=== PATIENT | male | born 1980 | race Caucasian/White ===

== ENCOUNTER 2018-10-13 18:48 | Emergency (ER) | payer OTHER ==
[2018-10-13 19:07] VITALS: RESP 18; TEMP 98.2
--- NOTE | 2018-10-13 19:30 | ED ---
Lower Extremity Injury HPI - General Source: patient Mode of arrival: ambulatory Limitations: no limitations <Maicol Rodriguez - Last Filed: 10/13/18 19:30> - General Source: patient, RN notes reviewed Mode of arrival: ambulatory Limitations: no limitations <Andrews Valladares - Last Filed: 10/13/18 21:12> - General Chief Complaint: Extremity Injury, Lower Stated Complaint: lt knee/leg pain Time Seen by Provider: 10/13/18 19:24 - History of Present Illness Initial Comments: 38-year-old male presents to the emergency department for a chief complaint of left knee pain times one day. Patient states that he was walking up the stairs when he suddenly felt the pain on the medial aspect of the left knee. Patient states he has not yet tried walking on this. Patient comes from [place] for methamphetamines. Patient has not had Motrin or Tylenol. Denies any fevers or chills. Patient has no other complaints at this time including shortness of breath, chest pain, abdominal pain, nausea or vomiting, headache, or visual changes. (Andrews Valladares) - Related Data Allergies Allergy/AdvReac Type Severity Reaction Status Date / Time morphine AdvReac Unknown Verified 10/13/18 19:07 Review of Systems ROS Other: All systems not noted in ROS Statement are negative. <Maicol Rodriguez - Last Filed: 10/13/18 19:30> ROS Other: All systems not noted in ROS Statement are negative. <Andrews Valladares - Last Filed: 10/13/18 21:12> ROS Statement: Those systems with pertinent positive or pertinent negative responses have been documented in the HPI. Past Medical History Past Medical History: No Reported History History of Any Multi-Drug Resistant Organisms: None Reported Past Surgical History: Orthopedic Surgery Additional Past Surgical History / Comment(s): jaw, left leg, right elbow Past Psychological History: No Psychological Hx Reported Smoking Status: Current every day smoker Past Alcohol Use History: None Reported Past Drug Use History: Methamphetamine <Maicol Rodriguez - Last Filed: 10/13/18 19:30> General Exam Limitations: no limitations <Maicol Rodriguez - Last Filed: 10/13/18 19:30> Limitations: no limitations General appearance: alert, in no apparent distress Head exam: Present: atraumatic, normocephalic, normal inspection Eye exam: Present: normal appearance ENT exam: Present: normal exam, mucous membranes moist Neck exam: Present: normal inspection, full ROM. Absent: tenderness, meningismus, lymphadenopathy Respiratory exam: Present: normal lung sounds bilaterally. Absent: respiratory distress, wheezes, rales, rhonchi, stridor Cardiovascular Exam: Present: regular rate, normal rhythm, normal heart sounds. Absent: systolic murmur, diastolic murmur, rubs, gallop, clicks Extremities exam: Present: full ROM (Full range of motion of the left knee), tenderness (Mild tenderness to the medial aspect of the left knee, no tenderness elsewhere the left lower extremity), normal capillary refill (Capillary refill less than 2 seconds and DP pulse 2+ the left lower extremity, foot is warm.), other (Sensation intact in the left lower extremity). Absent: joint swelling (No edema or erythema noted to the left knee.), calf tenderness (Negative Homans sign, no erythema or edema.) Neurological exam: Present: alert, oriented X3, CN II-XII intact Psychiatric exam: Present: normal affect, normal mood <Andrews Valladares - Last Filed: 10/13/18 21:12> Course Vital Signs 10/13/18 19:04 Temperature 98.2 F Pulse Rate 91 Respiratory 18 Rate Blood Pressure 117/77 O2 Sat by Pulse 98 Oximetry Medical Decision Making <Andrews Valladares - Last Filed: 10/13/18 21:12> - Medical Decision Making 38-year-old male presents to the emergency department for left medial knee pain after walking up stairs today. Patient states he felt the pain in the medial aspect of his knee. Patient states he can walk on it but it is painful. Neurovascular intact. Patient is at [facility] for methamphetamine use, no IV drug abuse. X-ray shows no fracture or dislocation, no sign of knee joint effusion. On exam there is no erythema or edema. Patient does have full range of motion. Patient was wrapped with an Wenceslao wrap and given a prescription for crutches. He was given a referral to orthopedics. He will follow up with primary care in 1-2 days as well. Discussed rice therapy and return precautions. (Andrews Valladares) Disposition <Maicol Rodriguez - Last Filed: 10/13/18 19:30> Is patient prescribed a controlled substance at d/c from ED?: No Time of Disposition: 21:07 <Andrews Valladares - Last Filed: 10/13/18 21:12> Clinical Impression: Knee injury Disposition: HOME SELF-CARE Condition: Good Instructions (If sedation given, give patient instructions): Knee Sprain (ED) Additional Instructions: Please take Motrin and Tylenol for pain. Please rest ice and elevate the left knee. Follow-up with orthopedics in one to 2 days. Use crutches as needed. Return to the emergency department if you have any worsening symptoms. Referrals: Flor Otoole MD [STAFF PHYSICIAN] - 1-2 days Keon Zamora MD [Medical Doctor] - 1-2 days
[2018-10-13] MEDS ORDERED: IBUPROFEN 600 MG TAB PO STA (20:05)
--- NOTE | 2018-10-13 20:42 | XR ---
EXAMINATION TYPE: XR knee complete LT DATE OF EXAM: 10/13/2018 COMPARISON: NONE HISTORY: Left knee pain TECHNIQUE: 3 views FINDINGS: I see no fracture nor dislocation. Joint spaces are normal. There is no sign of a knee join t effusion. IMPRESSION: Negative left knee exam.
[2018-10-13 22:00] VITALS: BP 132/83; PULSE 92
== END 2018-10-13 22:25 | disposition home or self-care (01) ==
LOC: EDBD → EC 18:48
DX: S89.92XA Unspecified injury of left lower leg, initial encounter (principal); F17.200 Nicotine dependence, unspecified, uncomplicated; Z88.5 Allergy status to narcotic agent; X50.9XXA Other and unspecified overexertion or strenuous movements or postures, initial encounter; Y93.01 Activity, walking, marching and hiking
CPT/HCPCS: 99283

== ENCOUNTER 2021-12-11 06:21 | Observation (INO) | payer BC, OTHER ==
[2021-12-11 06:30] VITALS: TEMP 97.9
[2021-12-11] MEDS ORDERED: ASPIRIN 81 MG PO STA (06:54)
--- NOTE | 2021-12-11 07:04 | ED ---
General Adult HPI - General Chief complaint: Chest Pain Stated complaint: SOB, chest pains Time Seen by Provider: 12/11/21 06:36 Source: patient Mode of arrival: ambulatory - History of Present Illness Initial comments: 41-year-old male presents to the emergency room for a chief complaint of chest pain. Patient states he has had chest pain on and off for the past few months. However about 5 days ago the pain started to worsen some and then this morning about an hour ago he felt he needed to come to the emergency room. He describes it as a squeezing in the left side of his chest currently rating the pain a 6 out of 10. Denies any radiating pain to the shoulder neck or jaw. Denies any radiating pain to the his back. He does feel some worsening pain with inspiration. Patient does not take any daily medications. No history of high cholesterol or high blood pressure although did gain significant amount of weight over the past 6 months. Patient does smoke currently.Patient has no other complaints at this time including abdominal pain, nausea or vomiting, headache, or visual changes. - Related Data Allergies Allergy/AdvReac Type Severity Reaction Status Date / Time morphine AdvReac Unknown Verified 12/11/21 06:29 Review of Systems ROS Statement: Those systems with pertinent positive or pertinent negative responses have been documented in the HPI. ROS Other: All systems not noted in ROS Statement are negative. Past Medical History Past Medical History: No Reported History History of Any Multi-Drug Resistant Organisms: None Reported Past Surgical History: Orthopedic Surgery Additional Past Surgical History / Comment(s): jaw, left leg, right elbow Past Psychological History: No Psychological Hx Reported Smoking Status: Current every day smoker Past Alcohol Use History: None Reported Past Drug Use History: Methamphetamine General Exam General appearance: alert, in no apparent distress Head exam: Present: atraumatic Eye exam: Present: normal appearance, PERRL, EOMI. Absent: scleral icterus, conjunctival injection ENT exam: Present: normal exam, mucous membranes moist Neck exam: Present: normal inspection, full ROM. Absent: tenderness Respiratory exam: Present: normal lung sounds bilaterally. Absent: respiratory distress, wheezes Cardiovascular Exam: Present: regular rate, normal rhythm, normal heart sounds GI/Abdominal exam: Present: soft, normal bowel sounds. Absent: distended, tenderness Course Vital Signs 12/11/21 12/11/21 12/11/21 06:26 06:54 07:46 Temperature 97.9 F Pulse Rate 66 58 L 68 Respiratory 16 18 16 Rate Blood Pressure 127/95 126/79 123/97 O2 Sat by Pulse 97 98 97 Oximetry EKG Findings - EKG Comments: EKG Findings:: Sinus bradycardia, ventricular rate 59, KS interval 184, QTc 388 Medical Decision Making - Medical Decision Making Vitals are stable. HPI and physical exam as documented. CBC CMP unremarkable. Troponin is negative. D-dimer is normal. Chest x-ray shows no acute process. Given patient has not seen a doctor and so does not know his medical history, is obese, and is a smoker he will be admitted for chest pain rule out. - Lab Data Result diagrams: 12/11/21 07:04 12/11/21 07:04 Lab Results 12/11/21 12/11/21 12/11/21 Range/Units 07:04 07:04 07:04 WBC 5.3 (3.8-10.6) k/uL RBC 4.86 (4.30-5.90) m/uL Hgb 14.9 (13.0-17.5) gm/dL Hct 44.7 (39.0-53.0) % MCV 92.0 (80.0-100.0) fL MCH 30.6 (25.0-35.0) pg MCHC 33.3 (31.0-37.0) g/dL RDW 12.3 (11.5-15.5) % Plt Count 281 (150-450) k/uL MPV 8.2 Neutrophils % 47 % Lymphocytes % 39 % Monocytes % 8 % Eosinophils % 3 % Basophils % 1 % Neutrophils # 2.5 (1.3-7.7) k/uL Lymphocytes # 2.0 (1.0-4.8) k/uL Monocytes # 0.4 (0-1.0) k/uL Eosinophils # 0.2 (0-0.7) k/uL Basophils # 0.1 (0-0.2) k/uL PT 10.4 (9.0-12.0) sec INR 0.9 (<1.2) APTT 25.0 (22.0-30.0) sec D-Dimer 0.30 (<0.60) mg/L FEU Sodium 140 (137-145) mmol/L Potassium 4.1 (3.5-5.1) mmol/L Chloride 108 H (98-107) mmol/L Carbon Dioxide 23 (22-30) mmol/L Anion Gap 9 mmol/L BUN 10 (9-20) mg/dL Creatinine 0.91 (0.66-1.25) mg/dL Est GFR (CKD-EPI)AfAm >90 (>60 ml/min/1.73 sqM) Est GFR (CKD-EPI)NonAf >90 (>60 ml/min/1.73 sqM) Glucose 98 (74-99) mg/dL Calcium 8.6 (8.4-10.2) mg/dL Magnesium 1.9 (1.6-2.3) mg/dL Total Bilirubin 0.4 (0.2-1.3) mg/dL AST 21 (17-59) U/L ALT 19 (4-49) U/L Alkaline Phosphatase 50 (38-126) U/L Troponin I (0.000-0.034) ng/mL NT-Pro-B Natriuret Pep pg/mL Total Protein 6.3 (6.3-8.2) g/dL Albumin 3.9 (3.5-5.0) g/dL Lipase 112 (23-300) U/L 12/11/21 12/11/21 Range/Units 07:04 07:04 WBC (3.8-10.6) k/uL RBC (4.30-5.90) m/uL Hgb (13.0-17.5) gm/dL Hct (39.0-53.0) % MCV (80.0-100.0) fL MCH (25.0-35.0) pg MCHC (31.0-37.0) g/dL RDW (11.5-15.5) % Plt Count (150-450) k/uL MPV Neutrophils % % Lymphocytes % % Monocytes % % Eosinophils % % Basophils % % Neutrophils # (1.3-7.7) k/uL Lymphocytes # (1.0-4.8) k/uL Monocytes # (0-1.0) k/uL Eosinophils # (0-0.7) k/uL Basophils # (0-0.2) k/uL PT (9.0-12.0) sec INR (<1.2) APTT (22.0-30.0) sec D-Dimer (<0.60) mg/L FEU Sodium (137-145) mmol/L Potassium (3.5-5.1) mmol/L Chloride (98-107) mmol/L Carbon Dioxide (22-30) mmol/L Anion Gap mmol/L BUN (9-20) mg/dL Creatinine (0.66-1.25) mg/dL Est GFR (CKD-EPI)AfAm (>60 ml/min/1.73 sqM) Est GFR (CKD-EPI)NonAf (>60 ml/min/1.73 sqM) Glucose (74-99) mg/dL Calcium (8.4-10.2) mg/dL Magnesium (1.6-2.3) mg/dL Total Bilirubin (0.2-1.3) mg/dL AST (17-59) U/L ALT (4-49) U/L Alkaline Phosphatase (38-126) U/L Troponin I <0.012 (0.000-0.034) ng/mL NT-Pro-B Natriuret Pep 57 pg/mL Total Protein (6.3-8.2) g/dL Albumin (3.5-5.0) g/dL Lipase (23-300) U/L Disposition Clinical Impression: Chest pain Disposition: ADMITTED IP TO THIS [facility] Referrals: None,Stated [Primary Care Provider] - 1-2 days Time of Disposition: 08:42
[2021-12-11 07:26] LABS: Basophils # (A) 0.1 k/uL (0-0.2); Basophils % (A) 1 %; Eosinophils # (A) 0.2 k/uL (0-0.7); Eosinophils % (A) 3 %; HCT 44.7 % (39.0-53.0); HGB 14.9 gm/dL (13.0-17.5); Lymphocytes % (A) 39 %; MCH 30.6 pg (25.0-35.0); MCHC 33.3 g/dL (31.0-37.0); Mean Platelet Volume 8.2; Monocytes # (A) 0.4 k/uL (0-1.0); Monocytes % (A) 8 %; Neutrophils # (A) 2.5 k/uL (1.3-7.7); Neutrophils % (A) 47 %; Platelet Count 281 k/uL (150-450); RBC 4.86 m/uL (4.30-5.90); RDW 12.3 % (11.5-15.5); WBC 5.3 k/uL (3.8-10.6)
--- NOTE | 2021-12-11 07:27 | XR ---
EXAMINATION TYPE: XR chest 2V DATE OF EXAM: 12/11/2021 COMPARISON: NONE HISTORY: Chest pain. TECHNIQUE: Frontal and lateral views of the chest are obtained. FINDINGS: There is no focal air space opacity, pleural effusion, or pneumothorax seen. The cardiac silhouette size is within normal limits. The osseous structures are intact. IMPRESSION: No acute process.
[2021-12-11 07:35] LABS: ALT 19 U/L (4-49); AST 21 U/L (17-59); African American GFR (CKD) >90 (>60 ml/min/1.73 sqM); Albumin 3.9 g/dL (3.5-5.0); Alkaline Phosphatase 50 U/L (38-126); Anion Gap 9 mmol/L; Blood Urea Nitrogen 10 mg/dL (9-20); Calcium 8.6 mg/dL (8.4-10.2); Carbon Dioxide 23 mmol/L (22-30); Chloride 108 mmol/L (98-107); Glucose 98 mg/dL (74-99); Lipase 112 U/L (23-300); Magnesium 1.9 mg/dL (1.6-2.3); Non-African American GFR(CKD) >90 (>60 ml/min/1.73 sqM); Potassium 4.1 mmol/L (3.5-5.1); Sodium 140 mmol/L (137-145); Total Bilirubin 0.4 mg/dL (0.2-1.3); Total Protein 6.3 g/dL (6.3-8.2)
[2021-12-11 07:40] LABS: INR 0.9 (<1.2); Prothrombin Time 10.4 sec (9.0-12.0)
[2021-12-11 07:47] VITALS: BP 123/97; PULSE 68; RESP 16
--- NOTE | 2021-12-11 10:43 | P.CRDCN ---
History of Present Illness History of present illness: HISTORY OF PRESENTING ILLNESS This is a pleasant 41-year-old male past medical history significant for chronic tobacco use. 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 We have been asked to see in consultation for chest pain. Patient presents emergency department with complaints of chest discomfort. He states that after he showered this morning he had chest tightness in the center of his chest and left sided, radiating to his back. He also had associated shortness of breath and lightheadedness. He states his symptoms continued for a few hours. Presented to the ER for further evaluation. He has been having on and off chest discomfort for a few months. He denies any diaphoresis, nausea, vomiting, syncope or near syncope. He denies any history of CAD, SD, Stroke, Diabetes or Hypertension. He does not currently take any medications. Currently smokes 1/2 pack cigarettes per day. Denies alcohol or illicit drug use. Family history includes grandparents had coronary artery disease later in life, in their 90s. No known cardiac workup in the past. DIAGNOSTICS EKG reveals sinus bradycardia, heart rate 59, T wave inversion in lead aVL. No acute ST-T wave abnormalities. Telemetry tracings indicate sinus rhythm Chest xray no acute cardiopulmonary process Laboratory reviewed, initial troponin negative, d-dimer negative, CBC unremarkable, sodium 140, potassium 4.1, BUN 10, serum creatinine 0.9, magnesium 1.9, proBNP 57 REVIEW OF SYSTEMS At the time of my exam: CONSTITUTIONAL: Denies fever or chills. CARDIOVASCULAR: Denies chest pain, shortness of breath, orthopnea, PND or palpitations. RESPIRATORY: Denies cough. GASTROINTESTINAL: Denies abdominal pain, diarrhea, constipation, nausea or vomiting. MUSCULOSKELETAL: Denies myalgias. NEUROLOGIC: Denies numbness, tingling, headache or weakness. ENDOCRINE: Denies fatigue, weight change, polydipsia or polyurina. GENITOURINARY: Denies burning, hematuria or urgency with micturation. HEMATOLOGIC: Denies history of anemia or bleeding. PHYSICAL EXAMINATION Blood pressure 123/97, heart 68, afebrile, saturation 97% room air CONSTITUTIONAL: No apparent distress. HEENT: Head is normocephalic. Pupils are equal, round. Sclerae anicteric. Mucous membranes of the mouth are moist. No JVD. No carotid bruit. CHEST EXAMINATION: Lungs are clear to auscultation. No chest wall tenderness is noted on palpation or with deep breathing. HEART EXAMINATION: Regular rate and rhythm. S1, S2 heard. No murmurs, gallops or rub. ABDOMEN: Soft, nontender. Positive bowel sounds. EXTREMITIES: 2+ peripheral pulses, no lower extremity edema and no calf tenderness. SKIN: warm, dry NEUROLOGIC EXAMINATION: Patient is awake, alert and oriented x3. ASSESSMENT Chest pain Chronic tobacco use PLAN Trend Troponins Repeat EKG Obtain 2D echocardiogram and doppler study to assess cardiac structure and function. Obtain Lipid panel If acute coronary syndrome has been ruled out, likely stress test today vs tomorrow morning to rule out stress induced cardiac ischemia Smoking cessation discussed and highly recommended. Further recommendations based on clinical course Thank you kindly for this consultation. Nurse practitioner note has been reviewed by physician. Signing provider agrees with the documented findings, assessment, and plan of care. Past Medical History Past Medical History: No Reported History History of Any Multi-Drug Resistant Organisms: None Reported Past Surgical History: Orthopedic Surgery Additional Past Surgical History / Comment(s): jaw, left leg, right elbow Past Psychological History: No Psychological Hx Reported Smoking Status: Current every day smoker Past Alcohol Use History: None Reported Past Drug Use History: Methamphetamine Medications and Allergies Home Medications Medication Instructions Recorded Confirmed Type Ibuprofen [Motrin Ib] 600 mg PO Q8H PRN 12/11/21 12/11/21 History Allergies Allergy/AdvReac Type Severity Reaction Status Date / Time morphine AdvReac stomach Verified 12/11/21 09:02 bleeding Physical Exam Vitals: Vital Signs Temp Pulse Resp BP Pulse Ox 12/11/21 07:46 68 16 123/97 97 12/11/21 06:54 58 L 18 126/79 98 12/11/21 06:26 97.9 F 66 16 127/95 97 Intake and Output 12/10/21 12/11/21 12/11/21 22:59 06:59 14:59 Other: Weight 99.79 kg Results 12/11/21 07:04 12/11/21 07:04 Cardiac Enzymes 12/11/21 12/11/21 Range/Units 07:04 07:04 AST 21 (17-59) U/L Troponin I <0.012 (0.000-0.034) ng/mL Coagulation 12/11/21 Range/Units 07:04 PT 10.4 (9.0-12.0) sec APTT 25.0 (22.0-30.0) sec CBC 12/11/21 Range/Units 07:04 WBC 5.3 (3.8-10.6) k/uL RBC 4.86 (4.30-5.90) m/uL Hgb 14.9 (13.0-17.5) gm/dL Hct 44.7 (39.0-53.0) % Plt Count 281 (150-450) k/uL Comprehensive Metabolic Panel 12/11/21 Range/Units 07:04 Sodium 140 (137-145) mmol/L Potassium 4.1 (3.5-5.1) mmol/L Chloride 108 H (98-107) mmol/L Carbon Dioxide 23 (22-30) mmol/L BUN 10 (9-20) mg/dL Creatinine 0.91 (0.66-1.25) mg/dL Glucose 98 (74-99) mg/dL Calcium 8.6 (8.4-10.2) mg/dL AST 21 (17-59) U/L ALT 19 (4-49) U/L Alkaline Phosphatase 50 (38-126) U/L Total Protein 6.3 (6.3-8.2) g/dL Albumin 3.9 (3.5-5.0) g/dL Current Medications Generic Name Dose Route Start Last Admin Trade Name Freq PRN Reason Stop Dose Admin Aspirin 325 mg 12/12/21 09:00 Aspirin 325 Mg Tab PO DAILY KODAK Intake and Output 12/10/21 12/11/21 12/11/21 22:59 06:59 14:59 Other: Weight 99.79 kg 12/11/21 07:04 12/11/21 07:04
--- NOTE | 2021-12-11 11:26 | P.HPIM ---
History of Present Illness Chief Complaint: Chest pain Patient is a 41-year-old male with a past medical history is significant for tobacco dependence episodes a hospital complaining of chest pain. This is in the substernal area that does not travel to the left arm or to the jaw. Patient states that this is intermittent in nature last approximately 20-30 minutes nothing makes it better or makes it worse. She denies any intractable nausea v omiting. Currently the patient is subsided during my examination. Vital signs are within normal limits, patient is normotensive penicillin percent on room air. CBC BMP unremarkable, cardiac troponin negative 2. Cardiology consulted from the emergency department. Patient denies any active shortness of breath, fever or chills including lower extremity edema. Past Medical History Past Medical History: No Reported History History of Any Multi-Drug Resistant Organisms: None Reported Past Surgical History: Orthopedic Surgery Additional Past Surgical History / Comment(s): jaw, left leg, right elbow Past Psychological History: No Psychological Hx Reported Smoking Status: Current every day smoker Past Alcohol Use History: None Reported Past Drug Use History: Methamphetamine Medications and Allergies Home Medications Medication Instructions Recorded Confirmed Type Ibuprofen [Motrin Ib] 600 mg PO Q8H PRN 12/11/21 12/11/21 History Allergies Allergy/AdvReac Type Severity Reaction Status Date / Time morphine AdvReac stomach Verified 12/11/21 09:02 bleeding Physical Exam Vitals: Vital Signs Temp Pulse Resp BP Pulse Ox 12/11/21 07:46 68 16 123/97 97 12/11/21 06:54 58 L 18 126/79 98 12/11/21 06:26 97.9 F 66 16 127/95 97 Intake and Output 12/10/21 12/11/21 12/11/21 22:59 06:59 14:59 Other: Weight 99.79 kg Gen. patient is awake alert oriented 3 Cardio normal S1/S2 no murmurs appreciated Respiratory no wheezing or rhonchi appreciated Abdomen soft, nontender Extremity no pitting edema noted Results CBC & Chem 7: 12/11/21 07:04 12/11/21 07:04 Labs: Abnormal Lab Results - Last 24 Hours (Table) 12/11/21 Range/Units 07:04 Chloride 108 H (98-107) mmol/L Assessment and Plan Assessment: Assessment: #1 chest pain rule out ACS versus musculoskeletal #2 tobacco dependence including marijuana Plan: -Admit to medicine for close monitoring -Aspiration/fall precaution -EKG, trend cardiac troponin -Obtain 2-D echocardiogram -Risk stratify patient with lipid panel, hemoglobin A1c -Cardio to consult emergency department -Lovenox for DVT prophylaxis
--- NOTE | 2021-12-11 12:04 | CA ---
Transthoracic Echo Report Name: Oz Carranza Age: 41 Gender: M : 1980 Exam Date: 12/11/2021 11:15 Exam Location: [facility] Ht (in): 71 Wt (lb): 220 Ordering Physician: Adrianna Cruz Attending/Referring Phys: Incident Response Engineer Noa Dennis RDCS Procedure CPT: Indications: Chest Pain Cardiac Hx: Technical Quality: Good Contrast 1: Total Dose (mL): Contrast 2: Total Dose (mL): MEASUREMENTS (Male / Female) Normal Values 2D ECHO LV Diastolic Diameter PLAX 4.1 cm 4.2 - 5.9 / 3.9 - 5.3 cm LV Systolic Diameter PLAX 1.9 cm IVS Diastolic Thickness 0.9 cm 0.6 - 1.0 / 0.6 - 0.9 cm LVPW Diastolic Thickness 1.1 cm 0.6 - 1.0 / 0.6 - 0.9 cm LV Relative Wall Thickness 0.5 LA Volume 34.1 cm??? 18 - 58 / 22 - 52 cm??? M-MODE Aortic Root Diameter MM 3.3 cm LA Systolic Diameter MM 3.2 cm LA Ao Ratio MM 1.0 MV E Point Septal Separation 0.7 cm AV Cusp Separation MM 2.4 cm DOPPLER AV Peak Velocity 124.1 cm/s AV Peak Gradient 6.2 mmHg MV Area PHT 3.2 cm??? MR Peak Velocity 131.8 cm/s MR Peak Gradient 7.0 mmHg Mitral E Point Velocity 87.9 cm/s Mitral A Point Velocity 60.8 cm/s Mitral E to A Ratio 1.4 MV Deceleration Time 237.9 ms MV E' Velocity 11.1 cm/s Mitral E to MV E' Ratio 7.9 TR Peak Velocity 190.2 cm/s TR Peak Gradient 14.5 mmHg Right Ventricular Systolic Press 18.6 mmHg FINDINGS Left Ventricle Normal Left ventricular size, wall thickness, systolic function with no obvious regional wall motion abnormalities. Normal Left ventricular diastolic filling pattern. Left ventricular ejection fraction is estimated at 55-60_left ventricular cavity size normal. %. Right Ventricle The right ventricle is normal in size and function. Right Atrium The right atrium is normal in size. Left Atrium The left atrium is normal in size. Mitral Valve Structurally normal mitral valve without significant stenosis or prolapse. There is trace mitral regurgitation. Aortic Valve Structurally normal aortic valve without significant sclerosis or stenosis. There is no aortic regurgitation. Tricuspid Valve Structurally normal tricuspid valve without significant stenosis. Pulmonary artery systolic pressure is normal. Trace tricuspid regurgitation. Pulmonic Valve Structurally normal pulmonic valve without significant stenosis. There is no pulmonic regurgitation. Pericardium Normal pericardium without effusion. Aorta Normal aortic root dimension. CONCLUSIONS Normal left ventricular systolic function. Please see above for more details Previewed by: Dr. Gato Javed MD (Electronically Signed) Final Date: 11 Dec 2021 12:03
[2021-12-12] MEDS ORDERED: ASPIRIN 325 MG TAB PO SCH (09:00)
--- NOTE | 2021-12-13 16:09 | P.DS ---
Providers Date of admission: 12/11/21 08:47 Attending physician: Luis Anguiano MD Consults: 12/11/21 08:43 Consult Physician Routine Consulting Provider: [facility] Consult Reason/Comments: chest pain, Do you want consulting provider notified?: Yes Primary care physician: Stated None Hospital Course: Patient left against medical advise. He has been advised not to. The risks associated with eating is medical advice including but not limited to To the patient. Patient signed AMA forms as per RN. Plan - Discharge Summary Discharge Rx Participant: No New Discharge Prescriptions: No Action Ibuprofen [Motrin Ib] 600 mg PO Q8H PRN PRN Reason: Pain Discharge Medication List Ibuprofen [Motrin Ib] 600 mg PO Q8H PRN 12/11/21 [History] Follow up Appointment(s)/Referral(s): None,Stated [Primary Care Provider] - 1-2 days Discharge Disposition: Left Against Medical Advice
== END 2021-12-11 17:39 | disposition left against medical advice (07) ==
LOC: EC 06:21 → 6NMEDSUR 08:47
PROVIDERS: ADMIT Internal Medicine; ATTEND Internal Medicine
DX: R07.89 Other chest pain (principal); R06.02 Shortness of breath; R00.1 Bradycardia, unspecified; E66.9 Obesity, unspecified; Z68.28 Body mass index [BMI] 28.0-28.9, adult; R42 Dizziness and giddiness; F17.210 Nicotine dependence, cigarettes, uncomplicated; Z88.5 Allergy status to narcotic agent; Z71.6 Tobacco abuse counseling; Z53.29 Procedure and treatment not carried out because of patient's decision for other reasons
CPT/HCPCS: 99285; 36415; 93005; 93306; 85379; 83880; 80053; 83690; 83735; 84484; 85025; 85610; 85730; 83036; 71046; G0378

== ENCOUNTER → 2022-02-14 | Outpatient (CLI) | payer OTHER ==
--- NOTE | 2022-02-14 10:45 | XR ---
EXAMINATION TYPE: XR wrist complete RT DATE OF EXAM: 02/14/2022 CLINICAL HISTORY: pain TECHNIQUE: Frontal, lateral and oblique images of the right wrist are obtained. Scaphoid views also submitted. COMPARISON: None. FINDINGS: There is no acute fracture/dislocation evident. The joint spaces appear within normal limits. The o verlying soft tissue appears unremarkable. IMPRESSION: There is no acute fracture or dislocation seen. ICD 10 NO FRACTURE, INITIAL EVALUATION
--- NOTE | 2022-02-14 10:46 | XR ---
EXAMINATION TYPE: XR hand complete RT DATE OF EXAM: 02/14/2022 CLINICAL HISTORY: pain TECHNIQUE: Frontal, lateral and oblique images of the right hand are obtained. COMPARISON: None. FINDINGS: There is no acute fracture/dislocation evident. The joint spaces appear within normal limi ts. The overlying soft tissue appears unremarkable. IMPRESSION: There is no acute fracture or dislocation ICD 10 NO FRACTURE, INITIAL EVALUATION
== END | disposition home or self-care (01) ==
LOC: RADXRMAIN 10:08
PROVIDERS: ATTEND Emergency Medicine
DX: S63.501A Unspecified sprain of right wrist, initial encounter (principal); M79.641 Pain in right hand; R20.9 Unspecified disturbances of skin sensation; X58.XXXA Exposure to other specified factors, initial encounter